=== PATIENT | female | born 1960 | race Caucasian/White ===

== ENCOUNTER 2016-12-17 09:22 | Emergency (ER) | payer OTHER ==
[~2016-12-17] VITALS: Ht 170.2 cm; Wt 135.0 kg
[~2016-12-17 09:22] MED LIST: ALPH600C3 PO; ASCO100089 PO; ASPI-628 PO; CHOL100043 PO; ESTR1PAT13 TD; IBUP200C PO; INSU100C8 SUBQ; INSU100V7 SUBQ; LOSA25TA21 PO; METF10002 PO; PRAV40TA PO
[2016-12-17 09:24] VITALS: BP 163/76; PULSE 81; RESP 12; O2SAT 96
--- NOTE | 2016-12-17 09:33 | ED.REPORT ---
HPI-Extremity Problem Lower Date of Service December 17, 2016 ED Provider: The patient is a 56 year old female with history of diabetes mellitus type II, hypertension, and hyperlipidemia, who presents to the emergency department complaining of diffuse abdominal pain that began 5 days ago while she was in [place]. She also experienced nausea, vomiting, and diarrhea. She was seen in the emergency department in [place] and placed on antibiotics. The abdominal pain and nausea have continued since onset. She describes the pain as a "pressure." Her pain is currently an 8/10, and at most severe it has been a 10/ 10. Her pain is intermittent and seemed to be exacerbated after she ate cottage cheese last night. She is not currently vomiting or having any episodes of diarrhea. She is now also experiencing a headache, bilateral ear pain, chronic sinus pressure/congestion, subjective fever, chills, and diaphoresis. The patient has been on many antibiotics in the last few months for sinus infections as well as for the abdominal pain. She denies dysuria or hematuria. A few days ago she tripped and fell to the ground landing on her knees. She was seen at [facility] after this fall and was discharged home. She also reports a sore to her right foot. She got a blister while wearing sandals in [place]. She denies pain. She has been trying to clean the wound regularly but still feels like it is getting worse. Nursing Notes Stated Complaint: STOMACH/ RT FOOT PAIN PAIN Chief Complaint: Extremity Trauma Nursing Notes Reviewed: Yes ([employer], [employer] not reconciled) Allergies: Coded Allergies: codeine (Verified Allergy, Severe, SHOOTING PAIN, 12/05/14) SUSANA Inhibitors (Verified Allergy, Intermediate, COUGH, 12/05/14) lisinopril (Verified Allergy, Intermediate, COUGH, 12/05/14) metoclopramide (Verified Allergy, Intermediate, PSYCHOSIS, 12/05/14) Scheduled Alpha Lipoic Acid (Alpha Lipoic Acid) 600 Mg Capsule 600 MG PO DAILY Ascorbic Acid (Vitamin C) 1,000 Mg Tab.chew 1,000 MG PO DAILY Aspirin (Aspir 81) 81 Mg Tablet.dr 81 MG PO DAILY Cholecalciferol (Vitamin D3) (Vitamin D) 1,000 Unit Tablet 1,000 UNIT PO DAILY Estradiol (Vivelle-Dot) 1 Each Patch.tdsw 1 EACH TD twice a week Insulin Aspart (NovoLOG U100 Insulin Vial) 100 U/Ml U 1 UNIT SUBQ TID-INSULIN Insulin Glargine (Lantus U100 Insulin Vial) 100 Unit/Ml Vial 1 UNIT SUBQ QPM- INSULIN Lactobacillus Combination No.4 (Probiotic) 1 Each Capsule 1 EACH PO DAILY Losartan Potassium (Losartan Potassium) 25 Mg Tablet 25 MG PO DAILY Metformin (Metformin) 1,000 Mg Tablet 1,000 MG PO BIDWM Pravastatin (Pravastatin) 40 Mg Tablet 40 MG PO DAILY Scheduled PRN Hydrocodone-Acetaminophen 5-325 mg (Hydrocodone-Acetaminophen 5-325 mg) 1 Each Tablet 1-2 TABLET PO Q4H PRN PRN For Pain Ibuprofen (Ibuprofen) 200 Mg Capsule 200 MG PO QID PRN PRN For Pain Prochlorperazine Maleate (Prochlorperazine) 10 Mg Tablet 10 MG PO Q4H PRN PRN For Nausea/Vomiting General Time Seen by MD: 09:31 Chief Complaint Other (abdominal pain) Hx Obtained From: Patient, Spouse Arrived By: Walk-in Onset Occurred: 5 days ago Symptom Duration: Since onset Location: : Foot right Quality: Painful Severity: Current: Mild Severity: Maximum: Moderate Recent Healthcare: No recent hospitalization, Recent doctor visit Similar Sx Previous: No Past Medical History Past Medical History Notes: Since seen in a hospital [facility] in [place] ([phone]) on 12/14/2016 for fever, abdominal pain, nausea,vomiting, and diarrhea: Patient underwent CT of the chest, abdomen and pelvis that were negative for acute disease. Blood work revealed moderate leukocytosis with white count of 14,000, patient was empirically treated with Levaquin and Flagyl Past Medical History Diabetes HTN Hyperlipedemia Past Surgical History Back surgery Finger surgeries Reports: Hysterectomy Family History father had cardiac stent in 70s. Smoking History Former Smoker Social History Other Social History: Local resident Ambulatory Status Independent Review of Systems Constitutional: Reports: Chills, Fever (subjective) Musculoskeletal: Denies: Extremity pain Skin: Reports Diaphoresis, Reports Rash (right foot) Neurologic: Reports: Headache Complete sys rev & neg: except as marked. Ears / Nose / Throat: Reports: Earache bilateral, Nasal congestion, Sinus problem GI: Reports: Abdominal pain, Diarrhea, Nausea, Vomiting Female: Denies: Dysuria, Hematuria Physical Exam Initial Vital Signs Vital Signs (First) Date Time Temp Pulse Resp B/P Pulse Ox O2 Delivery O2 Flow Rate FiO2 12/17/16 09:24 36.6 81 12 163/76 96 Room Air Initial VS: Reviewed, Vital signs normal (HTN) Head / Eyes: Atraumatic, Normocephalic, PERRL ENT: Mucous membranes moist, Conjunctiva normal, No scleral icterus Neck: Supple, Non-tender, Full range of motion Respiratory: Breath sounds normal, Clear to auscultation, No respiratory distress Upper Extremities: Vascular intact, Neuro intact Skin: Warm, Dry, No cyanosis Neurologic: Alert, Oriented, Nonfocal Psychiatric: Mood/affect normal, Behavior normal, Normal thought content Lower Extremity / Pelvis / MS: Neurologic intact, Vascular intact Ankle / Foot: Neurologic intact, Vascular intact She has an ulcer at the base of the 3rd and 4th metatarsals on the right, about 2cm across. No secondary signs of infection. Good pulses. General/Constitutional: Awake, Not toxic appearing Appearance / Presentation: Positive: Obese Appears fatigued. Cardiovascular: Heart rate NL, Regular rhythm, Heart sounds NL, No gallop, No murmurs, No rubs, Peripheral circulation NL Lower Ext Edema: Positive: Bilateral 1+ Abdomen: Soft, No guarding, No rebound, BS normoactive, No distention Trace tenderness to the right side of her abdomen. Interpretation & Diagnostics Lab Results Interpretation Result Diagram: 12/17/16 1015 12/17/16 1015 Test 12/17/16 10:15 12/17/16 10:28 White Blood Count 6.9th/mm3 (3.8-10.1) Red Blood Count 3.94mil/mm3 (3.90-5.20) Hemoglobin 12.1g/dL (12.0-15.6) Hematocrit 35.6% (35.0-46.0) Mean Corpuscular Volume 90.4fL (81-100) Mean Corpuscular Hemoglobin 30.7pg (27.0-35.0) Mean Corpuscular Hemoglobin Concent 34.0% (32.0-37.0) Red Cell Distribution Width 12.7% (12.3-15.4) Platelet Count 176bil/L (150-400) Neutrophils (%) (Auto) 64.1% (40-74) Lymphocytes (%) (Auto) 24.6% (14-46) Monocytes (%) (Auto) 8.4% (4-12) Eosinophils (%) (Auto) 2.2% (0-5) Basophils (%) (Auto) 0.6% (0-3) Sodium Level 134mEq/L (134-144) Potassium Level 4.2mEq/L (3.5-5.2) Chloride Level 98mEq/L (97-108) Carbon Dioxide Level 23mmol/L (18-29) Blood Urea Nitrogen 21mg/dL (6-24) Creatinine 0.75mg/dL (0.57-1.00) Estimat Glomerular Filtration Rate 114mL/min (>59) Glucose Level 278mg/dL (60-99) Calcium Level 8.9mg/dL (8.5-10.1) Magnesium Level 1.9mg/dL (1.6-2.6) Total Bilirubin 0.4mg/dL (0.0-1.2) Aspartate Amino Transf (AST/SGOT) 22U/L (0-50) Alanine Aminotransferase (ALT/SGPT) 36U/L (0-32) Alkaline Phosphatase 104U/L (25-150) Total Protein 6.8g/dL (6.4-8.4) Albumin 3.3g/dL (3.4-5.0) Lipase 23U/L (13-60) Hold Hurley Top Tube Received (Received) Lab Results Interpretation: CBC normal CMP mild hyperglycemia Re-Eval/Medical Decision Med Decision/Clinical Course This is a 56-year-old female who is a diabetic who presents with what turns out to be a chief complaint of vomiting and diarrhea. She started symptoms started in [facility] several days ago she was seen in an emergency department, had CT imaging was negative, and a white blood count that was elevated at 14, and she was treated empirically with Levaquin and Flagyl although was diagnosed with abdominal pain of unclear etiology. The diarrhea is now ended, but she still having nausea and that is sore. About a fever yesterday. And she noticed that she wore sandals and developed an ulcer in the right foot and she was wondering if they might be leading to him that it could be an infected foot ulcer. I. On exam she is not febrile. She does appear fatigued, nauseated-the abdomen is soft without focal tenderness no clinical signs of guarding or rebound or abdomen. She does have an ulcerativemetatarsal right foot, but there are no clinical signs of infection. She brought with her copies of her CT imaging, laboratories which were reviewed. Records were obtained today and were normal. Her leukocytosis has resolved. She does not have markers and repeat CT imaging are indicated and she was treated empirically of fluids, nausea medicine and pain medicine and is improved. At this point the plan is discharge, I have recommended a course of probiotics, routine precautions are reviewed. Patient is discharged in improved condition. Definitive cause of the risks and vomiting diarrhea remains unclear. She reports having sushi of food borne illness is possible, the patient's labs are improved, she clinically appears well, she is improving, going home-I am not finding any indication that additional testing is needed at this time. Source of Hx: Old records, Family Re-Evaluation/Progress #1: Time of Eval: 16:00 Re-Evaluation/Progress Note: The patient is sleeping comfortably. Re-Evaluation/Progress #2: Time of Eval: 17:24 Re-Evaluation/Progress Note: Rechecked the patient. She is feeling better. Discussed plan for discharge. All questions were addressed. Differential Diagnosis: Negative: Achilles tendon rupture, Compartment syndrome , Knee disloc ant, Knee disloc post, Proximal tibia fracture, Puncture wound, Subungual hematoma, Venous thromboembolism Counseled Regarding: Diagnosis, Lab results, Need for follow-up, When/why to return to ED Discharge & Departure Impression: Primary Impression: Nausea vomiting and diarrhea Additional Impressions: Dehydration Foot ulcer, right Disposition: Home Discharge Condition All VS Reviewed: Yes Condition: Stable Additional Instructions: 1. Your blood tests today were normal-this is improved from a few days ago when urine the emergency department and all . 2. We did not identify dangerous or surgical cause of your symptoms. I remains most likely a viral infection-incisions are expected to continue improve over the next several days. 3. You can take the medication prochlorperazine 10 mg up to every 6 hours as needed for nausea. 4. If needed for pain, take hydrocodone/APAP 5/325 1-2 tabs up to every 4-6 hours. : This medication does contain a narcotic and causes drowsiness. No driving for at least 4 hours after taking 5. I do recommend taking a probiotic daily for at least the next 2 weeks. 6. Drink small, frequent sips of fluids, and it is okay to eat small bits of food-slowly advance diet as tolerated. 7. Enzymes are expected to be improving over the next several days. If symptoms are worsening-return again to the emergency department. If symptoms are not improving completely over the next several days follow up with your primary care physician Referrals: Bety Knight (PCP) Scribe Attestation Portions of this note were transcribed by Britni Hamilton. I, Dr. Jimenez personally performed the history, physical exam and medical decision-making; I reviewed and confirmed the accuracy of the information in the transcribed note. Signed by: Geronimo Grayson, 12/17/2016 at 1800. copies to: Bety Knight Matthew F MD December 17, 2016 09:33 Britni Hamilton December 17, 2016 09:39
[2016-12-17] MEDS ORDERED: 0.9% Sodium Chloride 1,000 ML IV ONE ×3 (09:49→14:15)
[2016-12-17] MEDS ORDERED: HYDROmorphone 0.5 mg/0.5 mL iSecure Syringe IVPUSH PRN (09:50)
[2016-12-17] MEDS ORDERED: Ondansetron 2 mg/mL 2 mL Inj IVPUSH ONE (09:50)
[2016-12-17 10:18] LABS: BASOPHILS % (AUTO) 0.6 % (0-3); EOSINOPHILS % (AUTO) 2.2 % (0-5); MONOCYTES % (AUTO) 8.4 % (4-12); Mean Corpuscular Hemoglobin 30.7 pg (27.0-35.0); Mean Corpuscular Volume 90.4 fL (81-100); NEUTROPHILS % (AUTO) 64.1 % (40-74); Platelet Count 176 bil/L (150-400)
[2016-12-17 10:40] LABS: Magnesium 1.9 mg/dL (1.6-2.6)
[2016-12-17] MEDS: HYDROmorphone 1 mg/mL Inj IVPUSH PRN ×2 (10:44→13:23)
[2016-12-17 12:33] VITALS: BP 149/72; PULSE 75; RESP 12; O2SAT 96
[2016-12-17] MEDS ORDERED: ProchlorPERazine 5 mg/mL 2 mL Inj IVPUSH ONE (12:50)
[2016-12-17] MEDS ORDERED: HYDR-4003 PO (17:42)
[2016-12-17] MEDS ORDERED: LACT1CAP67 PO (17:42)
[2016-12-17] MEDS ORDERED: PROC10TA PO (17:42)
[2016-12-17 17:57] VITALS: BP 151/78; PULSE 81; RESP 16; O2SAT 96
== END 2016-12-17 17:57 | disposition home or self-care (01) ==
LOC: SED 09:22
DX: R11.2 Nausea with vomiting, unspecified (principal); R19.7 Diarrhea, unspecified; L97.519 Non-pressure chronic ulcer of other part of right foot with unspecified severity; E11.9 Type 2 diabetes mellitus without complications; E78.5 Hyperlipidemia, unspecified; Z87.891 Personal history of nicotine dependence; Z88.5 Allergy status to narcotic agent; Z79.82 Long term (current) use of aspirin; Z79.4 Long term (current) use of insulin; Z79.84 Long term (current) use of oral hypoglycemic drugs; Z79.899 Other long term (current) drug therapy
CPT/HCPCS: 36415; 80053; 83690; 83735; 85025; 87040; 96361; 96374; 96375; 96376; 99285; J0780; J1170; J1200; J2405; J7030